=== PATIENT | male | born 1980 | race Caucasian/White ===

== ENCOUNTER 2021-08-17 10:01 | Emergency (ER) | payer OTHER, SELFPAY ==
[2021-08-17 10:09] VITALS: BP 138/83; PULSE 71; RESP 12; TEMP 36.4; O2SAT 99
--- NOTE | 2021-08-17 10:10 | ED.URI ---
HPI - URI/Sore Throat General Chief Complaint: Upper Respiratory Infection Stated Complaint: cough/congestion Time Seen by Provider: 08/17/21 10:11 Source: patient and RN notes reviewed Mode of arrival: ambulatory Limitations: no limitations History of Present Illness HPI Narrative: Jerry is a 41-year-old male patient who related into the [facility] today. Patient states he has had sinus congestion, cough, and other issues since 08/04. Patient had a negative Covid test on 08/14/2021. Patient has had his Covid vaccine and recently had his Covid booster. Patient states that originally started with sinus congestion now is down into his chest. Patient's biggest complaint is a constant Hacking cough. Patient has been using [id number] cold medicine such as Mucinex without relief. MD elicited complaint: cough and sinus pain Related Data Allergies Allergy/AdvReac Type Severity Reaction Status Date / Time No Known Allergies Allergy Verified 08/17/21 10:09 Review of Systems Review of Systems: CONSTITUTIONAL: Denies body aches,+ fever, denies chills, or sweats. EYES: Denies visual changes, redness, or discharge. ENT: Denies rhinorrhea, + congestion, denies sore throat, or otalgia. CARDIOVASCULAR: Denies chest pain, palpitations, or edema. RESPIRATORY: + cough denies dyspnea. GASTROINTESTINAL: Denies abdominal pain, nausea, vomiting, or diarrhea. GENITOURINARY: Denies dysuria or hematuria. SKIN: Denies rash, itching, or wounds. MUSCULOSKELETAL: Denies back pain, joint pain, or myalgia. NEUROLOGIC: Denies headache, numbness, tingling, or weakness. PSYCH: Denies depression or anxiety. All systems reviewed & are unremarkable except as noted in HPI and below [facility] Family History Family History Father Family history of chronic obstructive pulmonary disease Social History Social History Smoking status: Never smoker Alcohol intake: current Comments At time of signature, I have reviewed and agree with nursing past medical, surgical, social and family history unless otherwise noted. Please see nursing chart for further information. There is no relevant family history pertinent to the presenting complaint Exam Narrative: GENERAL: Well-appearing, well-nourished, and in no acute distress. HEAD: Normocephalic, atraumatic. EYES: EOMI. No redness or drainage. Conjunctivae normal. ENT: Mucous membranes pink and moist. Nasal membranes pale with no rhinorrhea noted. Bilateral tympanic membranes are opaque with moderate fluid no erythema. Posterior pharynx is erythemic with mild edema and moderate amount of clear postnasal drainage is noted. Maxillary sinus swelling is noted. Uvula midline. NECK: Normal AROM. Supple. Bilateral anterior cervical lymphadenopathy. CHEST: No respiratory distress. Clear to auscultation. Harsh hacking cough noted MUSCULOSKELETAL: No bony tenderness. EXTREMITIES: Normal range of motion. No edema. SKIN: Warm, dry, no rash. Capillary refill normal. Normal skin turgor. NEURO: No focal deficits. Alert and oriented x3. Gait steady. PSYCH: Normal affect. No signs of depression or anxiety. Course Vital Signs Vital signs: Reviewed. Pt has been instructed to follow up with his PCP regarding his elevated blood pressure today. MDM - URI/Sore Throat MDM Narrative Medical decision making narrative: Patient has been sick for greater than 3 weeks. Patient has sinus congestion, constant hacking cough. He will be treated for bronchitis. He has been sick greater than 14 days so he will be given an antibiotic, prednisone and Tessalon Perles. Patient will follow up with his primary care physician Differential Diagnosis Differential diagnosis: Likely upper respiratory infection, otitis media, bronchitis and pharyngitis Medical Records Attestation: I reviewed the patient's medical records. Critical
== END 2021-08-17 10:27 | disposition home or self-care (01) ==
PROVIDERS: Emergency Provider Nurse Practitioner Family
DX: J40 Bronchitis, not specified as acute or chronic (principal)
CPT/HCPCS: 99213; G0463

== ENCOUNTER 2023-01-05 15:33 | Emergency (ER) | payer OTHER, SELFPAY ==
--- NOTE | ~2023-01-05 | CT_ITS ---
EXAMINATION: CT facial bones wo con DATE: 01/05/2023 17:14 INDICATION: Facial trauma with laceration above the right eye TECHNIQUE: Computed tomography (CT) of the facial bones and maxillofacial region was performed withou t intravenous contrast. Coronal reconstructions were obtained. Automated exposure control and iterati ve reconstruction technique were employed. The dose-length product was 428.62 mGy-cm. COMPARISON: None. FINDINGS: Soft tissue laceration overlying the right supraorbital rim. No radiopaque foreign bodies. Orbits are normal. No maxillofacial fractures. Specifically the nasal bones, vargas of the orbits and paranasal sinuses, the zygomatic arches and mandible are all intact. Temporomandibular joints are normal alignm ent. Nasal septum is midline. Mastoid air cells middle ear cavities are clear. Mild mucosal thickenin g the bilateral ethmoid sinuses. Moderate spondylosis in the lower cervical spine. IMPRESSION: 1. Right supraorbital soft tissue laceration with no radiopaque foreign bodies or acute osseous abnor mality. Reviewed, dictated and finalized at location A. IMPRESSION: 1. Right supraorbital soft tissue laceration with no radiopaque foreign bodies or acute osseous abnormality.
[2023-01-05 15:42] VITALS: BP 151/97; PULSE 83; RESP 14; TEMP 36.8; O2SAT 98
--- NOTE | 2023-01-05 16:44 | ED.GENADULT ---
HPI - General Adult General Chief complaint: Wound/Laceration Stated complaint: head lac Time Seen by Provider: 01/05/23 16:07 Source: patient Mode of arrival: ambulatory Limitations: no limitations History of Present Illness HPI narrative: This is a 43-year-old male presents ED with chief complaint of a left forehead laceration onset just prior to arrival. Patient was taking down a backboard on a basketball goal when the backboard came loose and hit him in the face. Patient reports pain and bleeding at the site of injury. Denies any further site of pain or injury. Denies LOC. Denies blood thinners. Denies headache, numbness, weakness, nausea, vomiting. Related Data Allergies Allergy/AdvReac Type Severity Reaction Status Date / Time No Known Allergies Allergy Verified 08/17/21 10:09 Review of Systems Review of Systems: CONSTITUTIONAL: Denies fever, chills, or sweats. EYES: Denies visual changes, redness, or discharge. ENT: Denies rhinorrhea, congestion, sore throat, or otalgia. CARDIOVASCULAR: Denies chest pain, palpitations, or edema. RESPIRATORY: Denies cough or dyspnea. GASTROINTESTINAL: Denies abdominal pain, nausea, vomiting, or diarrhea. GENITOURINARY: Denies dysuria or hematuria. SKIN: See HPI MUSCULOSKELETAL: Denies back pain, joint pain, or myalgia. NEUROLOGIC: Denies headache, numbness, dizziness, or weakness. PSYCHIATRIC: Denies anxiety or depression. PENDING SALE TO [facility] Family History Family History Father Family history of chronic obstructive pulmonary disease Social History Social History Smoking status: Never smoker Alcohol intake: current Exam Narrative: GENERAL: Well-appearing, well-nourished, and in no acute distress. HEAD: Normocephalic, atraumatic. EYES: PERRLA and EOMI. ENT: Nares clear, no rhinorrhea or epistaxis. Mucous membranes moist. Oropharynx without tonsillar hypertrophy exudate or other lesions. NECK: Supple. No adenopathy or masses. CHEST: No respiratory distress. Clear to auscultation. No wheezes rales or rhonchi HEART: Regular rate and rhythm. No murmur heard. Normal peripheral pulses. ABDOMEN: Soft, nontender, nondistended, normal active bowel sounds. EXTREMITIES: Normal range of motion. No edema. SKIN: There is a 2.5 cm laceration to the left forehead just above the left eyebrow. Bleeding controlled. No obvious foreign bodies. No further wounds. NEURO: Alert and oriented x3. No focal deficits. PSYCH: Normal mood and affect. Course Vital Signs Vital signs: Vital Signs Temperature 98.2 F 01/05/23 15:42 Pulse Rate 83 01/05/23 15:42 Respiratory Rate 14 01/05/23 15:42 Blood Pressure 151/97 H 01/05/23 15:42 Pulse Oximetry 98 01/05/23 15:42 Oxygen Delivery Room Air 01/05/23 15:42 Temperature 98.2 F 01/05/23 15:42 Pulse Rate 83 01/05/23 15:42 Respiratory Rate 14 01/05/23 15:42 Blood Pressure 151/97 H 01/05/23 15:42 Pulse Oximetry 98 01/05/23 15:42 Oxygen Delivery Room Air 01/05/23 15:42 Procedures Laceration Laceration 1: Date: 01/05/23 Time: 18:37 Site: face Side (If applicable): left Size (cm): 2.5 Description: linear Depth: simple, single layer Local Anesthetic: lidocaine 1% Amount of anesthesia used (mL): 3 Pre-repair: wound explored and irrigated extensively ====== Skin Level ====== Skin layer closed with: nylon Size (cm): 5-0 Number of sutures: 5 Technique: simple, interrupted ====== Subcutaneous Layer ====== ====== Muscle Layer ====== ====== Tendon Layer ====== Dressing: No dressing Medical Decision Making MDM Narrative Medical decision making narrative: This is a 43-year-old male who presents to the ED with chief complaint of a forehead injury occurring just prior to arrival. He
[2023-01-05] MEDS: LIDOCAINE HCL 1% LOCAL INJ 10 ML VIAL INFILTRATE (17:49)
== END 2023-01-05 18:49 | disposition home or self-care (01) ==
PROVIDERS: Emergency Provider Physician Assistant; PCP Physician Assistant
DX: S01.81XA Laceration without foreign body of other part of head, initial encounter (principal); W20.8XXA Other cause of strike by thrown, projected or falling object, initial encounter
CPT/HCPCS: 12011; 70486; 99284